=== PATIENT | male | born 1975 | race Caucasian/White ===

== ENCOUNTER 2024-04-23 14:08 | Emergency (ER) | payer SELFPAY ==
[2024-04-23] VITALS (7 sets, daily range): BP systolic 140–171; BP diastolic 88–105; PULSE 73–94; RESP 19–22; TEMP 36.6–36.9; O2SAT 93–95; BMI 32.5
--- NOTE | 2024-04-23 14:20 | EKG_ITS ---
[facility] Test Date: 2024-04-23 Pat Name: ARELY ANGELO Department: Room: - Gender: Male Associate: : 1975 Requested By: ED Temporary Provider Order Number: [id number] Reading MD: ED Temporary Provider Measurements Intervals [place] Rate: 88 P: 18 NH: 206 QRS: -45 QRSD: 104 T: 65 QT: 364 QTc: 441 Interpretive Statements SINUS RHYTHM PATTERN CONSISTENT WITH PULMONARY DISEASE LEFT ANTERIOR FASCICULAR BLOCK [QRS AXIS <= -45, QR IN I, RS IN II] No previous ECG available for comparison /store/S0/[id number].pdf
--- NOTE | 2024-04-23 14:53 | XR_ITS ---
Examination: PA lateral chest 2 views TECHNIQUE: Upright PA lateral chest 2 views Exam date and time: April 23, 2024 1528 hours INDICATIONS: Onset chest pain today. FINDINGS: Mild prominence left ventricle Suspicious for early pneumonia left upper lobe Atelectasis versus early pneumonia right base No pulmonary edema Intact osseous structures IMPRESSION: Suspicious for early left upper lobe pneumonia Atelectasis versus early pneumonia right base
--- NOTE | 2024-04-23 15:05 | PD.EDRME ---
Rapid Medical Screening Exam RME Arrival date/time: 04/23/24 14:08 48-year-old male presents emergency department complaints of epigastric pain that radiates into his chest. I have greeted and performed a focused initial assessment of this patient. Initial appropriate labs ordered at this time. A comprehensive ED assessment and evaluation of the patient and analysis of all test and completion of medical decision making process will be conducted by additional ED provider. Chief Complaint: Chest Pain Time Seen by Provider: 04/23/24 14:52 Vital signs: Vital Signs Temperature 98 F 04/23/24 15:07 Pulse Rate 94 04/23/24 15:07 Respiratory Rate 22 H 04/23/24 15:07 Blood Pressure 142/95 H 04/23/24 15:07 Pulse Oximetry (%) 95 04/23/24 15:07 Oxygen Delivery Method Room Air 04/23/24 15:07
--- NOTE | 2024-04-23 15:25 | XR_ITS ---
Examination: Abdomen sonogram, Limited Date and time of exam: April 23, 2024 1542 hours INDICATIONS: Epigastric pain radiating to the back beginning 3 days ago Technique: Real-time lizama scale transabdominal sonographic images of the upper abdomen obtained. Findings: Multiple gallstones Gallbladder wall 0.2 cm no edema Common bile duct 0.3 cm Pancreas obscured by bowel gas Liver 14.7 cm fatty liver lobular contour no liver lesions Normal hepatopedal portal venous flow Patent IVC IMPRESSION: Cholelithiasis, negative for cholecystitis Fatty liver, primary hepatocellular disease
[2024-04-23 15:37] LABS: Basophils # (Auto) 0.1 Thou/mm3 (0.0-0.2); Basophils % (Auto) 0 % (0-2.5); Eosinophils # (Auto) 0.1 Thou/mm3 (0.0-0.5); Eosinophils % (Auto) 0 % (0-10); Hematocrit 51.5 % (41.0-53.0); Hemoglobin 18.2 g/dL (13.5-16.0); Immature Granulocytes % (Auto) 1 % (0-0); Immature Granulocytes Auto 0.09 Thou/mm3 (0.00-0.00); Lymphocytes % (Auto) 5 % (10-50); Mean Corpuscular HGB Conc 35.3 g/dl (31.0-37.0); Mean Corpuscular Hemoglobin 29.8 pg (25.0-35.0); Mean Corpuscular Volume 84 fL (80-100); Monocytes # (Auto) 0.9 Thou/mm3 (0.0-0.8); Monocytes % (Auto) 5 % (0-12); Neutrophils # (Auto) 16.9 Thou/mm3 (1.8-7.7); Neutrophils % (Auto) 89 % (37-80); Nucleated Red Blood Cell % 0 /100 WBC (0); Platelet Count 236 Thou/mm3 (140-440); RDW Standard Deviation 41.2 fL (35.1-43.9)
[2024-04-23 15:51] LABS: Partial Thromboplastin Time 24.3 Seconds (22.0-36.0); Prothrombin Time 11.2 Seconds (9.0-12.2)
[2024-04-23 16:04] LABS: Alanine Aminotransferase 348 U/L (10-49); Albumin, Serum 5.1 gm/dL (3.5-5.0); Albumin/Globulin Ratio 1.6 (1.2-2.2); Alkaline Phosphatase 181 U/L (46-116); Anion Gap 6 (7-16); Aspartate Amino Transferase 218 U/L (0-34); B-Type Natriuretic Peptide < 20 pg/mL (0-100); BUN/Creatinine Ratio 13 Ratio (12-20); Bilirubin,Total 5.1 mg/dL (0.3-1.2); Blood Urea Nitrogen 14 mg/dL (9-23); Calcium 10.3 mg/dL (8.3-10.6); Calcium (Corrected) 10.3 mg/dL (8.5-10.1); Carbon Dioxide 24.5 mMol/L (20.0-31.0); Chloride 102 mMol/L (98-107); Creatinine (Component) 1.1 mg/dL (0.6-1.3); Estimated Creatinine Clearance 102.4 mL/min (>60); Globulin 3.1 gm/dL (2.3-3.5); Glucose 154 mg/dL (74-106); Lipase 3495 U/L (12-53); Magnesium 2.3 mg/dL (1.6-2.6); Osmolality,Calculated 268 (275-295); Potassium 4.7 mMol/L (3.4-5.1); Sodium 132 mMol/L (136-145); Total Protein 8.2 gm/dL (5.7-8.2); Troponin I < 0.020 ng/mL (0.0-0.045); eGFR > 60 See Note
--- NOTE | 2024-04-23 16:22 | XR_ITS ---
Examination: CT abdomen with intravenous contrast CT pelvis with intravenous contrast 2-D coronal reconstructions 2-D sagittal reconstructions Date and time of exam:April 23, 2024 1842 hrs. Comparison January 17, 2009 Indications: Abdominal pain radiating to the back with shortness of breath nausea vomiting beginning 3 days ago. CTDI: vol (mGy) 11.5 DLP: (mGycm) 802 Technique: Multiple axial sections of the abdomen and pelvis have been obtained. 64 slice high-resolution scanner used. 3 mm axial sections have been obtained, post intravenous injection 60 cc [id number] 2-D sagittal, coronal reconstructions obtained. Low dose protocols were performed. One or more of the following dose reduction techniques were used; automated exposure control, adjustment of the mA and/or KV according to patient size, use of iterative reconstruction technique. Findings: No focal liver lesions Cholelithiasis, gallbladder wall is thickened and edematous Common bile duct shows wall thickening and is distended with fluid density Gastric antrum shows mucosal thickening with pronounced edema involving the duodenum Pancreas exhibits mild edema Aorta normal size No hydronephrosis Absent appendix No bowel obstruction No bladder mass No prostatomegaly Moderate osteopenia Impression: Acute calculus cholecystitis Findings suspicious for ascending cholangitis, gastritis, active peptic disease duodenum, mild pancreatitis Consider MRCP follow-up
--- NOTE | 2024-04-23 17:15 | EDNOTE_ITS ---
ED SOB =RME/HPI General Chief Complaint: Chest Pain Stated Complaint: STERNAL CHEST PAIN RADIATING THROUGH BACK W/ SOB Time Seen by Provider: 04/23/24 14:52 Arrival date/time: 04/23/24 14:08 This is a 48-year-old male that comes in with complaints of chest pain and shortness of breath that started on 03/18/24. Patient states that pain is mostly to his epigastric area and radiates down to his back. Patient complains of nausea and trying to vomit but nothing comes out. Patient has a history of high blood pressure and takes lisinopril for this. Patient has a history of an appendectomy in the past. Patient denies alcohol or any drug use.. Patient denies fever but states stated he had chills. Limitations: other (Moderate distress) RME / HPI RME / HPI Narrative: 04/23/24 14:08 48-year-old male presents emergency department complaints of epigastric pain that radiates into his chest. I have greeted and performed a focused initial assessment of this patient. Initial appropriate labs ordered at this time. A comprehensive ED assessment and evaluation of the patient and analysis of all test and completion of medical decision making process will be conducted by additional ED provider. Related Data Previous Rx's ?Medication ?Instructions ?Recorded amlodipine 5 mg tablet 5 mg PO QDAY #30 tabs 04/30/24 lisinopril 40 mg tablet 40 mg PO QDAY 30 days #30 tabs 04/30/24 Allergies Allergy/AdvReac Type Severity Reaction Status Date / Time No Known Allergies Allergy Verified 04/23/24 14:09 Review of Systems Review of Systems Systems Reviewed: All systems reviewed, normal except as documented Past Medical History Past Medical History CARDIAC: Positive Hypertension (not on any medications x 1 month, lost his insurance); Negative Congestive Heart Failure RESPIRATORY: Negative Chronic Obstructive Pulmonary Disease (COPD) GENITOURINARY: Negative Renal Disease ENDOCRINE: Negative Diabetes Mellitus Type 1 or Diabetes Mellitus Type 2 Social History SMOKING STATUS: Never smoker Travel History EBOLA RISK: No Past Medical History Comments PMH COMMENT: Past medical history of hypertension, past surgical history of appendectomy No tobacco no alcohol no drugs Family history nonpertinent ED Exam General Limitations: Present other (Moderate distress) General appearance: Present alert Head Head exam: Present atraumatic Eye Eye exam: Present normal appearance, PERRL and EOMI ENT ENT exam: Present other (Mucous membranes dry) Neck Neck exam: Present normal inspection, full ROM and trachea midline Chest Chest inspection: Present normal inspection and symmetric chest wall rise Respiratory Respiratory exam: Present other (Diminished at bases) Cardiovascular Cardiovascular exam: Present regular rate, normal rhythm and normal heart sounds Abdominal Exam Abdominal exam: Present soft and other (Mild pain to palpation to epigastric area.) Extremities Exam Extremities exam: Present normal inspection and full ROM Back Exam Back exam: Present normal inspection and full ROM Neurological Exam Neurological exam: Present alert and oriented X3 Psychiatric Psychiatric exam: Present normal affect and normal mood Skin Skin exam: Present warm, dry and intact Course Quality Measures none Orders Category Date Time Status CT Screening NOW Care 04/23/24 16:22 Completed EKG (ED ONLY) *Do not use* NOW Care 04/23/24 14:20 Completed Transfer to another facility [Transfer/Discharge] Stat Discharge 04/23/24 21:[address] abdomen pelvis w con Stat Exams 04/23/24 16:22 Completed EKG (ED Only) Stat Exams 04/23/24 14:20 Draft US gall bladder Stat Exams 04/23/24 15:25 Completed XR chest 2V Stat Exams 04/23/24 14:53 Completed B-Type Natriuretic Peptide Stat Lab 04/23/24 15:24 Completed CBC Stat Lab 04/23/24 15:24 Completed Comprehensive Metabolic Panel Stat Lab 04/23/24 15:24 Completed Drug Screen,Urine Stat Lab 04/23/24 20:25 Completed Lipase Stat Lab 04/23/24 15:24 Completed Magnesium Stat Lab 04/23/24 15:24 Completed Partial Thromboplastin Time Stat Lab 04/23/24 15:24 Completed Prothrombin Time with INR Stat Lab 04/23/24 15:24 Completed Triglycerides Stat Lab 04/23/24 15:24 Completed Troponin I Stat Lab 04/23/24 15:24 Completed Urinalysis, C/S if Indicated Stat Lab 04/23/24 20:25 Completed Aspirin Med 04/23/24 15:25 Discontinued 325 mg PO X1 ONE HYDROmorphone INJ [Dilaudid Inj] Med 04/23/24 17:19 Discontinued 0.5 mg IVP X1 ONE HYDROmorphone INJ [Dilaudid Inj] Med 04/23/24 19:32 Discontinued 0.5 mg IVP X1 ONE HYDROmorphone INJ [Dilaudid Inj] Med 04/23/24 22:13 Discontinued 1 mg IVP X1 ONE Lidocaine 2% Viscous [Xylocaine 2% Viscous] Med 04/23/24 15:25 Discontinued 15 ml PO X1 ONE Ondansetron Inj [Zofran Inj] Med 04/23/24 17:19 Discontinued 4 mg IV X1 ONE Ondansetron Inj [Zofran Inj] Med 04/23/24 22:13 Discontinued 4 mg IV X1 ONE Ondansetron Odt [Zofran Odt] Med 04/23/24 14:53 Discontinued 4 mg PO X1 ONE Piper/Tazo Inj [Zosyn Inj] 3.375 gm Med 04/23/24 19:53 Discontinued Sodium Chloride 0.9% (P) [Ns 0.9% (P)] 50 ml IV X1 Sodium Chloride 0.9% 1000 ml [Ns] 1,000 ml Med 04/23/24 17:15 Discontinued IV 999 mls/hr Sodium Chloride 0.9% 1000 ml [Ns] 1,000 ml Med 04/23/24 17:15 Discontinued IV 999 mls/hr mg Hyd/Al Hyd/Diamond Susp [Maalox Susp] Med 04/23/24 15:25 Discontinued 30 ml PO X1 ONE Vital Signs Vital signs: Vital Signs Temperature 98 F 04/23/24 15:07 Pulse Rate 94 04/23/24 15:07 Respiratory Rate 22 H 04/23/24 15:07 Blood Pressure 142/95 H 04/23/24 15:07 Pulse Oximetry (%) 95 04/23/24 15:07 Oxygen Delivery Method Room Air 04/23/24 15:07 Procedures -ED EKG Interpretation #1: Date of EK04/23/24 Time of EK:11 Rate: 88 Interpretation: Interpreted by me (sinus rhythm with left anterior fasicular block ) EKG Impression: No ectopy, Normal QRS and Normal intervals Shortness of Breath / Dyspnea [facility] Narrative MDM Narrative:: This is a 48-year-old male that comes in with complaints of chest pain and shortness of breath that started on 03/18/24. Patient states that pain is mostly to his epigastric area and radiates down to his back. Patient complains of nausea and trying to vomit but nothing comes out. Patient has a history of high blood pressure and takes lisinopril for this. Patient has a history of an appendectomy in the past. Patient denies alcohol or any drug use.. Patient denies fever but states stated he had chills. Labs significant for a white count of 19.0, hemoglobin and hematocrit of 18.0 and 51.5, neutrophil count elevated 89, metabolic panel shows a sodium of 132 glucose 154, total bilirubin of 5.1 AST 218 ALT of 348 alk phos of 181, troponin 0.020, BNP is less than 20, lipase 3495, triglyceride level 148, urine showed some RBCs and ketones. Patient treated with Dilaudid for pain. Patient given Zofran for nausea. Chest x-ray was questionable for upper left lobe pneumonia. Patient was given dose of Zosyn 3.75. Patient does not have a fever upon arrival but does report chills, questionable for cholangitis versus choledochocholelithiasis. Unable to get MRCP here in the emergency room. Patient will likely need a ERCP done. CT scan of abdomen and pelvis shows common bile duct wall thickening and distended with fluid density. Attempting to transfer patient to higher level of care where ERCP is available. Patient given 2 L of IV fluids. I spoke to [facility], ue accepted, GI chest x ray: FINDINGS: Mild prominence left ventricle Suspicious for early pneumonia left upper lobe Atelectasis versus early pneumonia right base No pulmonary edema Intact osseous structures IMPRESSION: Suspicious for early left upper lobe pneumonia Atelectasis versus early pneumonia right base ct abdomen and pelvis Findings: No focal liver lesions Cholelithiasis, gallbladder wall is thickened and edematous Common bile duct shows wall thickening and is distended with fluid density Gastric antrum shows mucosal thickening with pronounced edema involving the duodenum Pancreas exhibits mild edema Aorta normal size No hydronephrosis Absent appendix No bowel obstruction No bladder mass No prostatomegaly Moderate osteopenia Impression: Acute calculus cholecystitis Findings suspicious for ascending cholangitis, gastritis, active peptic disease duodenum, mild pancreatitis Consider MRCP follow-up ue acceptefd, GI Patient data External records reviewed:: [facility] previous records Clinical information provided by:: patient Social determinants that could affect healthcare access:: none Patient has the following chronic illnesses:: see hpi How is presenting disease/condition affected by chronic disease/condition?: exacerbated by Evaluation data The following diagnostics were reviewed and interpreted by me:: lab results, radiology exam(s) and EKG tracing(s) Lab and/or radiology exams considered but not ordered:: ercp Interpretation Summary: see mdm Medications / Prescriptions Medications or Prescriptions considered but not ordered:: none Medication administrations:: Medication Administration History Discontinued Medications Al Hydrox/Mg Hydrox/Simethicone (Mg Hyd/Al Hyd/Diamond (Maalox Reg) Susp 30 Ml Udc) 30 ml PO X1 ONE Stop: 04/23/24 15:26 Last Admin: 04/23/24 18:09 Dose: Not Given Documented By: [facility] Non-Admin Reason: Cancelled by Provider Aspirin (Aspirin 325 Mg Tablet) 325 mg PO X1 ONE Stop: 04/23/24 15:26 Last Admin: 04/23/24 18:08 Dose: Not Given Documented By: [facility] Non-Admin Reason: Cancelled by Provider Hydromorphone HCl (Hydromorphone Inj 2 Mg/Ml Vial) 0.5 mg IVP X1 ONE Stop: 04/23/24 17:20 Last Admin: 04/23/24 18:20 Dose: 0.5 mg Documented By: Noemi Hydromorphone HCl (Hydromorphone Inj 2 Mg/Ml Vial) 0.5 mg IVP X1 ONE Stop: 04/23/24 19:33 Last Admin: 04/23/24 19:43 Dose: 0.5 mg Documented By: CALVIN Hydromorphone HCl (Hydromorphone Inj 2 Mg/Ml Vial) 1 mg IVP X1 ONE Stop: 04/23/24 22:14 Last Admin: 04/23/24 22:19 Dose: 1 mg Documented By: CVL Sodium Chloride (Ns) 1,000 mls @ 999 mls/hr IV .Q1H1M ONE Stop: 04/23/24 18:15 Last Infusion: 04/23/24 20:07 Dose: Infused Documented By: Admin: 04/23/24 18:17 Dose: 999 mls/hr Documented By: [facility] Sodium Chloride (Ns) 1,000 mls @ 999 mls/hr IV .Q1H1M ONE Stop: 04/23/24 18:15 Last Infusion: 04/23/24 20:08 Dose: Infused Documented By: Admin: 04/23/24 18:18 Dose: 999 mls/hr Documented By: [facility] Piperacillin Sod/Tazobactam (Sod 3.375 gm/ Sodium Chloride) 50 mls @ 100 mls/hr IV X1 ONE Stop: 04/23/24 20:22 Last Infusion: 04/23/24 20:28 Dose: Infused Documented By: Admin: 04/23/24 19:58 Dose: 100 mls/hr Documented By: MARIE Lidocaine HCl (Lidocaine Viscous 2% 15 Ml Udc) 15 ml PO X1 ONE Stop: 04/23/24 15:26 Last Admin: 04/23/24 18:09 Dose: Not Given Documented By: [facility] Non-Admin Reason: Cancelled by Provider Ondansetron HCl (Ondansetron Odt 4 Mg Tabrap) 4 mg PO X1 ONE Stop: 04/23/24 14:54 Last Admin: 04/23/24 18:08 Dose: Not Given Documented By: [facility] Non-Admin Reason: Cancelled by Provider Ondansetron HCl (Ondansetron Inj 2 Mg/Ml Inj 2 Ml) 4 mg IV X1 ONE; Protocol Stop: 04/23/24 17:20 Last Admin: 04/23/24 18:19 Dose: 4 mg Documented By: SEDRICK Ondansetron HCl (Ondansetron Inj 2 Mg/Ml Inj 2 Ml) 4 mg IV X1 ONE; Protocol Stop: 04/23/24 22:14 see note Consultations Consultation(s) initiated? (list below): Yes Consultation #1 (Physician, Specialty, Details): yes see hpi Diagnosis Shortness of Breath Differential Diagnosis: other (cholecystitis, cholangitis. choledochocholelithiasis) Most likely diagnosis given after review of the tests above:: gallstones, elevated liver enzymes, fever Admission Indicated Admission indicated?: not indicated Admission Request Was there a request for admission?: No Disposition Plan Disposition Plan: Transfer Discharge Plan Plan Patient Disposition: [facility] Facility Pt Being Transferred to: [facility] Service Needed for Transfer: Gastroenterology Prescriptions/Referrals Prescriptions/Med Rec: No Action lisinopril 40 mg tablet 40 mg PO QDAY 30 Days Qty: 30 0RF amlodipine 5 mg tablet 5 mg PO QDAY Qty: 30 0RF Referrals: Jose Henderson MD [Primary Care Provider] - In 1 week Problem List Clinical Impression: Cholecystitis, Elevated liver function tests, Pancreatitis Patient/Caregiver Discharge Instructions Print Language: Occitan Stand Alone Forms: Sirena Award Info., Patient Portal Info Letter
--- NOTE | 2024-04-23 18:09 | PC.NURSE ---
PER PATTI N/P DO NOT GIVEN ZOFRAN ODT, ASA, LIDOCAINE OR MAALOX
[2024-04-23] MEDS: SODIUM CHLORIDE 0.9% 1000 ML 1,000 ML 999 ML IV ×2 (18:17→18:18)
[2024-04-23] MEDS: ONDANSETRON INJ 2 MG/ML INJ 2 ML 4 MG IV (18:19)
[2024-04-23] MEDS: HYDROmorphone INJ 2 MG/ML VIAL 0.5 MG IVP ×2 (18:20→19:43)
--- NOTE | 2024-04-23 18:20 | PC.NURSE ---
This chest pain assessment pertains to pt's chest pain 3 days ago; pt denying chest pain at this time. Pt reports that the chest pain only lasted for 2 hours when it began 3 days ago.
--- NOTE | 2024-04-23 18:20 | PC.NURSE ---
Addendum entered by Melody Johnson RN 04/23/24 18:54: @1820- Pt also initially c/o chest pain sharp that started 3 days ago as well; pt reports it stopped hurting after 2 hours on that day. Pt denying chest pain at this time. Original Note: Pt coming in from [facility] with c/o epigastric pain x3 days with nausea but denying vomiting at this time. Pt reports, this is the first time it has happened to me. Pt states, I stopped eating 2 days ago; but the last time I drank water was yesterday. Pt's only hx is hypertension, per pt.
[2024-04-23] MEDS: PIPER/TAZO INJ 3.375 GM in SODIUM CHLORIDE 0.9% (P) 50 ML IV (19:58)
[2024-04-23 20:18] LABS: Triglycerides 148 mg/dL (30-150)
[2024-04-23 20:32] LABS: Collection Type, Urine Voided; Squamous Epithelial Cell,Urine 0 /hpf (0-5)
[2024-04-23 20:55] LABS: Bilirubin,Urine 1+ (Negative); Blood,Urine Negative (Negative); Clarity,Urine Clear (Clear/Hazy); Color,Urine Yellow (Lt Yel-Yel); Culture Indicated,Urine Not Indicated; Glucose, Urine Negative (Negative); Ketones,Urine 2+ (Negative); Leukocyte Esterase,Urine Negative (Negative); Nitrite,Urine Negative (Negative); PH,Urine 5.5 (5.0-7.0); Protein,Urine Trace (Neg - Trace); RBC,Urine 4 /hpf (0-3); Specific Gravity,Urine 1.038 (1.001-1.035); WBC,Urine 3 /hpf (0-5)
--- NOTE | 2024-04-23 21:29 | PC.NURSE ---
[address] [facility] CONTACTED INFO SENT. [address] [facility] CONTACTED SPEAKING WITH PATTI GONSALEZ. [address] [facility] ACCEPTS PT ED TO ED BY DR BARRIENTOS.
--- NOTE | 2024-04-23 21:52 | PC.NURSE ---
PATIENT ACCEPTED TO [facility] , ER TO ER, REPORT #[id number], SPOKE TO SHAYAN
[2024-04-23 22:07] LABS: Amphetamine/Methamp Scrn,U Negative (Negative); Barbiturate Screen,Urine Negative (Negative); Benzodiazepines Screen,Urine Negative (Negative); Benzoylecgonine Screen, Ur Negative (Negative); Fentanyl Screen,Urine Negative (Negative); Opiate Screen,Urine Positive (Negative); THC Screen,Urine Negative (Negative)
[2024-04-23] MEDS: HYDROmorphone INJ 2 MG/ML VIAL 1 MG IVP (22:19)
--- NOTE | 2024-04-23 22:24 | PC.NURSE ---
REPORT GIVEN TO [facility] ER.
== END 2024-04-23 22:25 | disposition short-term general hospital (02) ==
PROVIDERS: Nurse Practitioner Family; Nurse Practitioner Primary Care; Emergency Provider Emergency Medicine; PCP Family Medicine
DX: K80.00 Calculus of gallbladder with acute cholecystitis without obstruction (principal); K85.90 Acute pancreatitis without necrosis or infection, unspecified; R79.89 Other specified abnormal findings of blood chemistry; I44.4 Left anterior fascicular block; R07.89 Other chest pain; I10 Essential (primary) hypertension; Z75.1 Person awaiting admission to adequate facility elsewhere
CPT/HCPCS: 36415; 71046; 74177; 76705; 80053; 80307; 81001; 83690; 83735; 83880; 84478; 84484; 85025; 85610; 85730; 93005; 96361; 96365; 96375; 96376; 99285; A4649; J2405; J2543; J3490; J7030; J7050; Q9967

== ENCOUNTER 2024-04-29 05:40 | Inpatient (IN) | payer SELFPAY ==
[2024-04-29] VITALS (7 sets, daily range): BP systolic 143–167; BP diastolic 81–105; PULSE 75–88; RESP 16–97; TEMP 36.1–36.8; O2SAT 92–96; BMI 34.9
--- NOTE | 2024-04-29 06:16 | PC.NURSE ---
MD German Taylor made aware that pt is a transfer from [facility] and arrived to the floor at this time.
[2024-04-29 09:59] LABS: Basophils # (Auto) 0.1 Thou/mm3 (0.0-0.2); Basophils % (Auto) 1 % (0-2.5); Eosinophils # (Auto) 0.5 Thou/mm3 (0.0-0.5); Eosinophils % (Auto) 4 % (0-10); Hematocrit 39.9 % (41.0-53.0); Hemoglobin 14.2 g/dL (13.5-16.0); Immature Granulocytes % (Auto) 1 % (0-0); Immature Granulocytes Auto 0.11 Thou/mm3 (0.00-0.00); Lymphocytes # (Auto) 1.3 Thou/mm3 (1.0-4.8); Lymphocytes % (Auto) 9 % (10-50); Mean Corpuscular HGB Conc 35.6 g/dl (31.0-37.0); Mean Corpuscular Hemoglobin 29.5 pg (25.0-35.0); Mean Corpuscular Volume 83 fL (80-100); Monocytes # (Auto) 1.1 Thou/mm3 (0.0-0.8); Monocytes % (Auto) 7 % (0-12); Neutrophils # (Auto) 11.5 Thou/mm3 (1.8-7.7); Neutrophils % (Auto) 79 % (37-80); Nucleated Red Blood Cell % 0 /100 WBC (0); Platelet Count 202 Thou/mm3 (140-440); RDW Standard Deviation 39.4 fL (35.1-43.9); Red Blood Count 4.81 Miln/mm3 (4.50-5.90); White Blood Count 14.6 Thou/mm3 (3.8-10.6)
[2024-04-29 10:18] LABS: Alanine Aminotransferase 52 U/L (10-49); Albumin, Serum 4.3 gm/dL (3.5-5.0); Albumin/Globulin Ratio 1.5 (1.2-2.2); Alkaline Phosphatase 97 U/L (46-116); Anion Gap 6 (7-16); Aspartate Amino Transferase 28 U/L (0-34); BUN/Creatinine Ratio 11 Ratio (12-20); Bilirubin,Total 0.7 mg/dL (0.3-1.2); Blood Urea Nitrogen 9 mg/dL (9-23); Calcium 9.3 mg/dL (8.3-10.6); Calcium (Corrected) 9.3 mg/dL (8.5-10.1); Chloride 95 mMol/L (98-107); Creatinine (Component) 0.8 mg/dL (0.6-1.3); Estimated Creatinine Clearance 145.9 mL/min (>60); Globulin 2.9 gm/dL (2.3-3.5); Glucose 108 mg/dL (74-106); Lipase 48 U/L (12-53); Osmolality,Calculated 262 (275-295); Potassium 3.3 mMol/L (3.4-5.1); Sodium 131 mMol/L (136-145); Total Protein 7.2 gm/dL (5.7-8.2); eGFR > 60 See Note
[2024-04-29] MEDS: Lisinopril 20 MG TABLET 40 MG PO (12:19)
[2024-04-29] MEDS: POTASSIUM CHLORIDE 20 mEq TABCR 40 MEQ PO (12:21)
--- NOTE | 2024-04-29 12:35 | PC.SS ---
Patient is alert/oriented. Patient is a return back from [facility] as a transfer back. Patient was admitted for pancreatitis. Patient does not recall what was done at [facility]. Patient states he resides with daughter, Sherin. He wants to return home. Patient states he is independent with ADL'.s Patient was not using any DME. His PCP: [facility] off [address]. Patient last appt. was 6 months ago. Patient pharmacy: [facility]. Patient states his daughter, Sherin, is the alt medical decision maker.
[2024-04-29] MEDS: LACTULOSE SYRUP 20 GM/30 ML UDC 10 GM PO (12:45)
--- NOTE | 2024-04-29 12:46 | PC.NURSE ---
Dr. German in to see pt
--- NOTE | 2024-04-29 14:03 | ESCONSULT_ITS ---
HPI Consult details Consult date: 04/29/24 Reason for consultation narrative: Cholelithiasis History of present illness: 48-year-old male with history of hypertension has had 1 week history of epigastric and right upper quadrant pain. He was seen in the emergency department about a week ago with worsening epigastric and right upper quadrant pain radiating to his back with multiple episodes of nausea and vomiting. He was noted to have elevation of liver and pancreatic enzymes. Ultrasound revealed multiple gallstones. CT scan revealed gallbladder wall thickening with edema with pancreatitis. Patient was transferred to [facility] where he underwent MRCP and managed conservatively. He is transferred back to our hospital where his liver and pancreatic enzymes are normal and his symptoms are improving. Patient is tolerating clear liquids Past Medical History Surgical History OTHER SURGICAL HX: Appendectomy Social History SMOKING STATUS: Never smoker SUBSTANCE USE: does not use ALCOHOL: Never Meds Home Medications and Allergies Home Medications ?Medication ?Instructions ?Recorded ?Confirmed ?Type lisinopril 20 mg tablet 40 mg PO QDAY 04/23/24 04/29/24 History Allergies Allergy/AdvReac Type Severity Reaction Status Date / Time No Known Allergies Allergy Verified 04/23/24 14:09 Exam Vital Signs Temp Pulse Resp BP Pulse Ox O2 Del Method 98.2 F 88 18 149/105 H 94 L Room Air 04/29/24 12:00 04/29/24 12:19 04/29/24 12:19 04/29/24 12:19 04/29/24 12:00 04/29/24 12:00 Constitutional Constitutional: no acute distress Routine Abdominal Exam Abdominal: Present soft, normoactive bowel sounds and tenderness (Minimal tenderness to palpation epigastric, no rebound tenderness or peritonitis at this time); Absent distended Assessment & Plan Additional Assessment Additional comments: Patient most likely had gallstone pancreatitis that resolved. Plan He wishes to follow-up as an outpatient for elective cholecystectomy. Patient will need to follow-up at [facility] to see his PMD and be referred to me for elective cholecystectomy.
--- NOTE | 2024-04-29 16:32 | ESHP_ITS ---
<Statement entered by Sonja Mayer MD - 04/30/24 20:06> Patient is a 48-year-old male with past medical history significant for hypertension who presented to the ED initially on 04/23/2024 with repeated episodes of epigastric pain radiating to the chest. Due to patient's worsening pain and labs, patient was transferred for further workup including MRCP and possible ERCP to [facility] MRCP in [facility] showed cholelithiasis but no choledocholithiasis. Patient was transferred back to [facility] on 04/29/2024 further management of pancreatitis secondary to gallstones. Dr German, GI was consulted for possible cholecystectomy. Patient will continue to be on pain regimen and replete electrolytes as needed. I discussed with and supervised the business management intern physician who took care of this patient. I personally saw and examined the patient and discussed the assessment and plan with the entire medicine team, including my attending , I agree with most of the assessment and plan as documented below Sonja Mayer M.D. PGY-2 Documentation for date of: 04/29/24 HPI History of Present Illness Chief complaint: abdominal pain History of present illness: Kenneth Walker is 48 yr male with PMH of HTN who initially presented to [facility] on04/23/2024 after having repeated episodes of epigastric pain that was radiating to chest. Patient stated that stabbing pain was sudden onset associated with diaphoresis, nausea, and pain 04/18. The pain was intermittent, however a few days before admission, pain progressed to being continuous and worsened with multiple episodes of vomiting. He endorsed lightheaded and dizziness. Upon arrival in the ED at [facility], CT A/P showed suspicious ascending cholangitis and acute calculus cholecystitis. Labs were significant for leukocytosis WBC 19, hemoglobin 18, creatinine 1.1, calcium 10.3, bilirubin 5.1, AST 218, ALT 348, alk phos 181, and lipase 3495. There was high suspicion that patient may need the ERCP. Therefore, he was transferred to [facility] for workup. During time at [facility], patient underwent MRCP which showed cholelithiasis and suspicion of gallstone induced acute pancreatitis. He was started n.p.o., given IV fluids, and pain management. On 04/29/2024 patient was transferred back to ED at [facility] where he was admitted for further assessment. Patient states that pain has improved but still 5/10, in epigastric region, radiating to back. Denies vomiting and has decreased appetite. Labs from today significant for downtrending WBC 14.6, hemoglobin 14.2, hypokalemia 3.3, down trended AST 28, ALT 52, lipase 48. Dr German was consulted who stated that patient is stable enough to have cholecystectomy done outpatient. PMH: as noted above PSH: appendectomy FamHx: Noncontributory Social: Denies smoking or drinking. Review of Systems Review of Systems Systems Reviewed: All systems reviewed, normal except as documented Exam Vital Signs Temp Pulse Resp BP Pulse Ox O2 Del Method 97.3 F 75 18 147/101 H 94 L Room Air 04/29/24 16:00 04/29/24 16:00 04/29/24 16:00 04/29/24 16:00 04/29/24 16:00 04/29/24 16:00 Narrative Exam General: Alert and oriented x3. No acute distress, cooperative HEENT: Atraumatic, normocephalic. No JVD noted. Mucosa moist. Cardiovascular: Normal S1 and S2. Regular rate and rhythm. No pitting edema Respiratory: Lungs are clear to auscultation bilaterally. No wheezing or crackles heard. Abdomen: distended, epigastric pain to deep palpation, no gaurding/rigidity, hypoactive bowel sounds Skin: Warm to touch, dry, no rashes noted Musculoskeletal: No gross injuries. Able to move all 4 extremities. Neuro: Alert and oriented x3. No focal neuro deficits. Psych: Normal affect and mood Results: Labs 04/30/24 04:52 04/30/24 04:52 Labs: Short CBC 04/29/24 Range/Units 09:35 WBC 14.6 H (3.8-10.6) Thou/mm3 Hgb 14.2 D (13.5-16.0) g/dL Hct 39.9 L (41.0-53.0) % Plt Count 202 D (140-440) Thou/mm3 BMP 04/29/24 09:35 Sodium 131 L Potassium 3.3 L Chloride 95 L Carbon Dioxide 30.0 BUN 9 Creatinine 0.8 Glucose 108 H Calcium 9.3 Liver Function 04/29/24 Range/Units 09:35 Total Bilirubin 0.7 (0.3-1.2) mg/dL AST 28 (0-34) U/L ALT 52 H (10-49) U/L Alkaline Phosphatase 97 (46-116) U/L Albumin 4.3 (3.5-5.0) gm/dL Quality Measures Quality Measures VTE prophylaxis Medications Home Medications and Allergies Home Medications ?Medication ?Instructions ?Recorded ?Confirmed ?Type lisinopril 20 mg tablet 40 mg PO QDAY 04/23/24 04/29/24 History Allergies Allergy/AdvReac Type Severity Reaction Status Date / Time No Known Allergies Allergy Verified 04/23/24 14:09 Visit Medications Acetaminophen (Acetaminophen Supp 650 Mg Supp) 650 mg ID Q6HR PRN PRN Reason: Fever > 100.3 or pain Stop: 05/29/24 11:38 Heparin Sodium (Porcine) (Heparin Sod Inj 5000 Unit/Ml Vial) 5,000 unit SC Q12HR SUGEY Stop: 05/13/24 20:59 Lisinopril (Lisinopril 20 Mg Tablet) 40 mg PO QDAY [facility] Stop: 05/29/24 11:44 Last Admin: 04/29/24 12:19 Dose: 40 mg Ondansetron HCl (Ondansetron Inj 2 Mg/Ml Inj 2 Ml) 4 mg IV Q6H PRN; Protocol PRN Reason: NAUSEA OR VOMITING Stop: 05/29/24 11:38 Oxycodone/Acetaminophen (Oxycodone/Apap 5/325 Tablet) 1 tab PO Q6HR PRN PRN Reason: PAIN Stop: 05/04/24 06:05 Discontinued Medications Lactulose (Lactulose Syrup 20 Gm/30 Ml Udc) 10 gm PO X1 ONE; Protocol Stop: 04/29/24 12:32 Last Admin: 04/29/24 12:45 Dose: 10 gm Potassium Chloride (Potassium Chloride 20 Meq Tabcr) 40 meq PO X1 ONE Stop: 04/29/24 11:46 Last Admin: 04/29/24 12:21 Dose: 40 meq Assessment & Plan Plan Kenneth Walker is 48 yr male with PMH of HTN who initially presented to [facility] on04/23/2024 after having repeated episodes of epigastric pain that was radiating to chest. Patient stated that stabbing pain was sudden onset associated with diaphoresis, nausea, and pain 04/18. The pain was intermittent, however a few days before admission, pain progressed to being continuous and worsened with multiple episodes of vomiting. There was high suspicion that patient may need the ERCP. Therefore, he was transferred to [facility] for workup. MRCP which showed cholelithiasis and suspicion of gallstone induced acute pancreatitis. On 04/29/2024 patient was transferred back to ED at [facility] where he was admitted for further assessment. Dr German was consulted who stated that patient is stable enough to have cholecystectomy done outpatient. #Gallstone induced acute pancreatitis Cholelithiasis progressing to cholecystitis with movement of stone down into CBD causing gallstone induced pancreatitis. CTAP confirms finding of multiple gallstones. It was likely that gallstone was causing cholecystitis and eventually passed into CBD where blockage affected pancreas causing acute inflammation. Recommended that patient has cholecystectomy. Stable enough to have procedure done outpatient. Lipase down trended now normalized to 48, AST 28, ALT 52. ? Dr German was consulted and recommended to follow-up outpatient for cholecystectomy ? to [place] 5 every 6 HR as needed acetaminophen 650 mg p.o. ? Zofran 4 mg IV every 6 hours as needed ?Currently on low-fat diet #History HTN Continue home medication lisinopril 40 mg p.o. daily #Hypokalemia ?Monitor and replete as necessary Health maintenance: Dispo: d/c tomorrow pending WBC trend DVT prophylaxis: Subcu heparin CODE STATUS: Full code Diet: Low-fat The patient's management plan was discussed with my attending physician Dr. Kellogg and seniors Dr. Rodriguez/Dr. Mayer. Winter Crews, PGY-1 Attending Provider Attestation/Addendum I have examined the patient, reviewed labs and imaging findings, discussed the case with the resident(s), and reviewed entered orders. I agree with the plan of care as outlined in this note, with these additional summaries/recommendations: Patient is a 48-year-old male who was transferred back to [facility] from [facility] for gallstone induced pancreatitis. Patient is now tolerating clear liquid diet and we will advance to low-fat diet. Continue pain management. General surgery was consulted and recommends outpatient cholecystectomy. Mild hypokalemia and replacement given. Continue lisinopril for primary hypertension. Dr. Kellogg
[2024-04-29] MEDS: oxyCODONE/APAP 5/325 TABLET 1 TAB PO (20:30)
[2024-04-30 01:35] VITALS: PULSE 79; RESP 18; RESP 95
[2024-04-30 04:00] VITALS: BP 150/103; PULSE 82; RESP 17; TEMP 36.2; O2SAT 92
[2024-04-30 06:14] LABS: Basophils # (Auto) 0.1 Thou/mm3 (0.0-0.2); Basophils % (Auto) 1 % (0-2.5); Eosinophils # (Auto) 0.5 Thou/mm3 (0.0-0.5); Eosinophils % (Auto) 4 % (0-10); Hematocrit 39.7 % (41.0-53.0); Hemoglobin 14.2 g/dL (13.5-16.0); Immature Granulocytes % (Auto) 1 % (0-0); Immature Granulocytes Auto 0.17 Thou/mm3 (0.00-0.00); Lymphocytes # (Auto) 1.4 Thou/mm3 (1.0-4.8); Lymphocytes % (Auto) 10 % (10-50); Mean Corpuscular HGB Conc 35.8 g/dl (31.0-37.0); Mean Corpuscular Volume 84 fL (80-100); Monocytes # (Auto) 1.2 Thou/mm3 (0.0-0.8); Monocytes % (Auto) 9 % (0-12); Neutrophils # (Auto) 10.4 Thou/mm3 (1.8-7.7); Neutrophils % (Auto) 76 % (37-80); Nucleated Red Blood Cell % 0 /100 WBC (0); Platelet Count 260 Thou/mm3 (140-440); RDW Standard Deviation 39.8 fL (35.1-43.9); Red Blood Count 4.73 Miln/mm3 (4.50-5.90); White Blood Count 13.8 Thou/mm3 (3.8-10.6)
[2024-04-30 06:20] LABS: INR 1.2 (0.9-1.3); Partial Thromboplastin Time 30.9 Seconds (22.0-36.0); Prothrombin Time 12.8 Seconds (9.0-12.2)
[2024-04-30 06:39] LABS: Alanine Aminotransferase 48 U/L (10-49); Albumin/Globulin Ratio 1.5 (1.2-2.2); Alkaline Phosphatase 94 U/L (46-116); Anion Gap 7 (7-16); Aspartate Amino Transferase 28 U/L (0-34); BUN/Creatinine Ratio 15 Ratio (12-20); Bilirubin,Total 0.6 mg/dL (0.3-1.2); Blood Urea Nitrogen 12 mg/dL (9-23); Carbon Dioxide 28.5 mMol/L (20.0-31.0); Chloride 100 mMol/L (98-107); Creatinine (Component) 0.8 mg/dL (0.6-1.3); Estimated Creatinine Clearance 145.9 mL/min (>60); Globulin 2.7 gm/dL (2.3-3.5); Glucose 117 mg/dL (74-106); Magnesium 2.2 mg/dL (1.6-2.6); Osmolality,Calculated 270 (275-295); Phosphorous 2.5 mg/dL (2.4-5.1); Potassium 3.3 mMol/L (3.4-5.1); Sodium 135 mMol/L (136-145); Total Protein 6.7 gm/dL (5.7-8.2); eGFR > 60 See Note
[2024-04-30 07:43] VITALS: PULSE 72; RESP 18; RESP 94
[2024-04-30 08:00] VITALS: BP 158/107; PULSE 72; RESP 18; TEMP 36.6; O2SAT 92
[2024-04-30 09:25] VITALS: BP 158/107; PULSE 72
[2024-04-30] MEDS: Lisinopril 20 MG TABLET 40 MG PO (09:25)
[2024-04-30] MEDS: POTASSIUM CHLORIDE 20 mEq TABCR 40 MEQ PO (09:25)
[2024-04-30] MEDS: POTASSIUM CHLORIDE 20 mEq TABCR PO (11:28)
[2024-04-30 12:00] VITALS: BP 155/109; PULSE 70; RESP 18; TEMP 36.6; O2SAT 95
--- NOTE | 2024-04-30 12:44 | PC.SS ---
Follow up note: Patient is a true self pay. SS spoke to financial counselor who states patient is not eligible for [employer] as he already applied prior. He applied for new [employer] but needs to provide proof of income documentation. Patient is pending [employer] but needs this submitted. Possible d/c home today.
--- NOTE | 2024-04-30 18:34 | PD.RESDS ---
Planned Discharge Date 04/30/24 DS: Providers Provider Date of admission: 04/29/24 05:40 Primary care physician: Physician No Primary/Family Admitting Provider: Berhane Morgan MD Attending Provider on Admission: Jeff Kellogg MD Consults: 04/29/24 11:42 Consult to General Surgery Routine Comment: possible cholecystectomy Consulting Provider: Quang German Attending Provider on DC: Winter Crews MD Discharging Provider: Jeff Kellogg MD DS: Diagnosis Problem List Completed Was Problem List Reviewed/Reconciled?: Yes Hospital Course Hospital Course Hospital course: Reason for hospitalization: gallstone induced pancreatitis Kenneth Walker is 48 yr male with PMH of HTN who initially presented to [facility] on04/23/2024 after having repeated episodes of epigastric pain that was radiating to back. Patient stated that stabbing pain was sudden onset associated with diaphoresis, nausea, and pain 04/18. Upon arrival in the ED at [facility], CT A/P showed suspicious ascending cholangitis and acute calculus cholecystitis. Labs were significant for leukocytosis WBC 19, hemoglobin 18, creatinine 1.1, calcium 10.3, bilirubin 5.1, AST 218, ALT 348, alk phos 181, and lipase 3495. There was high suspicion that patient may need ERCP. Therefore, he was transferred to [facility] for workup. During time at [facility], patient underwent MRCP which showed cholelithiasis and suspicion of gallstone induced acute pancreatitis. He was started n.p.o., given IV fluids, and pain management. On 04/29/2024 patient was transferred back to ED at [facility] where he was admitted for further assessment. Pain had improved but continued to have dcreased appetite. General surgery Dr. German was consulted for cholecystectomy. Repeat labs revealed downtrending WBC 14, hemoglobin 14, hypokalemia 3.3, down trended AST/ALT/lipase. Potassium was repleted and next day he was able to tolerate low-fat diet. As patient was stable and labs were improving, Dr German recommended for patient to have cholecystectomy outpatient. Patient is now in stable condition and ready for discharge. Recommendations were given as below. Discharge Recommendations: Take medications as prescribed. F/U with PCP in 1-2 weeks and obtain referral for general surgery- Dr. German for elective cholecystectomy. Repeat CBC in one week to monitor for resolution of leukocytosis. Return to ED if symptoms recur or worsen. Hospital Diagnoses: #Gallstone induced acute pancreatitis #Cholelithiasis #History HTN #Hypokalemia-resolved The patient's management plan was discussed with my attending physician Dr. Kellogg and senior Dr. Rodriguez. Winter Crews MD, PGY-1 Time Spent with Patient Time attestation: Total time spent providing and/or coordinating discharge services: Time spent: Greater than 30 minutes Exam Vital Signs Temp Pulse Resp BP Pulse Ox O2 Del Method 97.9 F 70 18 155/109 H 95 Room Air 04/30/24 12:00 04/30/24 12:00 04/30/24 12:00 04/30/24 12:00 04/30/24 12:00 04/30/24 12:00 Narrative Exam General: Alert and oriented x3. No acute distress, cooperative HEENT: Atraumatic, normocephalic. No JVD noted. Mucosa moist. Cardiovascular: Normal S1 and S2. Regular rate and rhythm. No pitting edema Respiratory: Lungs are clear to auscultation bilaterally. No wheezing or crackles heard. Abdomen: distended, epigastric pain to deep palpation, no gaurding/rigidity, hypoactive bowel sounds Skin: Warm to touch, dry, no rashes noted Musculoskeletal: No gross injuries. Able to move all 4 extremities. Neuro: Alert and oriented x3. No focal neuro deficits. Psych: Normal affect and mood Discharge Plan Plan Patient Disposition: HOME (Self Care) Disposition Comment: D/C after lunch if he tolerates it. Care Plan Goals: Take medications as prescribed. F/U with PCP in 1-2 weeks and obtain referral for general surgery- Dr. German for elective cholecystectomy. Repeat CBC in one week to monitor for resolution of leukocytosis. Return to ED if symptoms recur or worsen. Prescriptions/Referrals Prescriptions/Med Rec: New lisinopril 40 mg tablet 40 mg PO QDAY 30 Days Qty: 30 0RF amlodipine 5 mg tablet 5 mg PO QDAY Qty: 30 0RF Discontinued lisinopril 20 mg tablet 40 mg PO QDAY Referrals: Quang German MD [Physician] - No Primary/Family,Physician [Primary Care Provider] - Patient/Caregiver Discharge Instructions Education Materials: Understanding Pancreatitis, ED Cholecystitis, Confirmed Print Language: Indonesian Activity Restrictions/Additional Instructions: Take medications as prescribed. Follow up with Primary Care Provider in 1-2 weeks and obtain referral for general surgery- Dr. German for elective cholecystectomy. Repeat CBC in one week to monitor for resolution of leukocytosis. Return to ED if symptoms recur or worsen. Stand Alone Forms: Sirena Award Info., Patient Portal Info Letter Discharge Order Discharge Orders: Discharge (Routine); Ordered 04/30/24 Ordered By: Geneva Rodriguez Quality Discharge Quality Measures VTE prophylaxis MD Attestestation MD Attestation I have examined the patient, reviewed labs and imaging findings, discussed the case with the resident(s), and reviewed entered orders. I agree with the plan of care as outlined in this note. Dr. Kellogg
== END 2024-04-30 13:57 | disposition home or self-care (01) | DRG 439 ==
PROVIDERS: Admitting Provider Student in an Organized Health Care Education/Training Program; Visit Provider Student in an Organized Health Care Education/Training Program
DX: K85.90 Acute pancreatitis without necrosis or infection, unspecified (principal); K80.12 Calculus of gallbladder with acute and chronic cholecystitis without obstruction; I10 Essential (primary) hypertension; E87.6 Hypokalemia
CPT/HCPCS: 36415; 80053; 83690; 83735; 84100; 85025; 85610; 85730; 87081; A9270

== ENCOUNTER 2024-08-16 20:01 | Emergency (ER) | payer SELFPAY ==
[2024-08-16 21:26] VITALS: BP 151/98; PULSE 54; RESP 24; TEMP 36.4; O2SAT 96
--- NOTE | 2024-08-16 21:31 | PD.EDRME ---
Rapid Medical Screening Exam RME Arrival date/time: 08/16/24 20:01 48 yo m present to ED for c/o of abd pain hx pancreatitis I have greeted and performed a focused initial assessment of this patient. A comprehensive ED assessment and evaluation of the patient, analysis of all test results, and completion of the medical decision making process will be conducted by additional ED providers. Chief Complaint: Abdominal Pain Time Seen by Provider: 08/16/24 20:52 Vital signs: Vital Signs Temperature 97.6 F 08/16/24 21:26 Pulse Rate 54 L 08/16/24 21:26 Respiratory Rate 24 H 08/16/24 21:26 Blood Pressure 151/98 H 08/16/24 21:26 Pulse Oximetry (%) 96 08/16/24 21:26 Oxygen Delivery Method Room Air 08/16/24 21:26
[2024-08-16 22:20] LABS: Basophils # (Auto) 0.1 Thou/mm3 (0.0-0.2); Basophils % (Auto) 0 % (0-2.5); Eosinophils # (Auto) 0.1 Thou/mm3 (0.0-0.5); Eosinophils % (Auto) 0 % (0-10); Hematocrit 48.5 % (41.0-53.0); Hemoglobin 17.6 g/dL (13.5-16.0); Immature Granulocytes % (Auto) 1 % (0-0); Immature Granulocytes Auto 0.14 Thou/mm3 (0.00-0.00); Lymphocytes # (Auto) 1.7 Thou/mm3 (1.0-4.8); Lymphocytes % (Auto) 7 % (10-50); Mean Corpuscular HGB Conc 36.3 g/dl (31.0-37.0); Mean Corpuscular Hemoglobin 29.8 pg (25.0-35.0); Mean Corpuscular Volume 82 fL (80-100); Monocytes # (Auto) 1.3 Thou/mm3 (0.0-0.8); Monocytes % (Auto) 5 % (0-12); Neutrophils # (Auto) 23.1 Thou/mm3 (1.8-7.7); Neutrophils % (Auto) 87 % (37-80); Nucleated Red Blood Cell % 0 /100 WBC (0); Platelet Count 224 Thou/mm3 (140-440); RDW Standard Deviation 37.9 fL (35.1-43.9); Red Blood Count 5.91 Miln/mm3 (4.50-5.90)
[2024-08-16 22:26] LABS: White Blood Count 26.4 Thou/mm3 (3.8-10.6)
[2024-08-16 22:52] LABS: Alanine Aminotransferase 353 U/L (10-49); Albumin, Serum 4.7 gm/dL (3.5-5.0); Albumin/Globulin Ratio 1.5 (1.2-2.2); Alkaline Phosphatase 155 U/L (46-116); Amylase 1671 U/L (30-118); Anion Gap 9 (7-16); Aspartate Amino Transferase 222 U/L (0-34); BUN/Creatinine Ratio 14 Ratio (12-20); Bilirubin,Total 5.8 mg/dL (0.3-1.2); Blood Urea Nitrogen 14 mg/dL (9-23); Calcium 9.9 mg/dL (8.3-10.6); Calcium (Corrected) 9.9 mg/dL (8.5-10.1); Carbon Dioxide 26.6 mMol/L (20.0-31.0); Chloride 103 mMol/L (98-107); Globulin 3.1 gm/dL (2.3-3.5); Glucose 169 mg/dL (74-106); Lipase 2504 U/L (12-53); Osmolality,Calculated 282 (275-295); Potassium 3.3 mMol/L (3.4-5.1); Sodium 139 mMol/L (136-145); Total Protein 7.8 gm/dL (5.7-8.2); eGFR > 60 See Note
--- NOTE | 2024-08-16 23:27 | XR_ITS ---
Examination: Abdomen sonogram, Limited Date and time of exam: August 17, 2024 0032 hrs. Indications: Onset right upper abdominal pain beginning 4 days ago. Technique: Real-time lizama scale transabdominal sonographic images of the upper abdomen obtained. Findings: Gallstones Gallbladder wall 0.3 cm Common bile duct 0.4 cm Pancreas obscured by bowel gas Liver 15.6 cm fatty infiltration Normal hepatopedal portal venous flow Patent IVC Impression: Cholelithiasis Consider HIDA scan or MRCP follow-up to exclude cholecystitis
--- NOTE | 2024-08-16 23:27 | XR_ITS ---
Examination: CT chest with intravenous contrast CT abdomen with intravenous contrast CT pelvis with intravenous contrast 2-D coronal and sagittal reconstructions Time of exam: August 17, 2024 0125 hrs. Indications: Chest pain abdominal pain sepsis protocol today CTDI: vol (mGy) : 11.3 DLP: (mGycm): 908 5 0 Technique: Multiple axial images of the chest, abdomen and pelvis with intravenous contrast, 3.0 mm slice thickness. Images obtained post intravenous injection Isovue 370 60 cc. 2-D sagittal and coronal reconstructions. Low dose protocols were performed. One or more of the following dose reduction techniques were used; automated exposure control, adjustment of the mA and/or KV according to patient size, use of iterative reconstruction technique. Findings: No thoracic aortic aneurysmal dilatation No pulmonary artery filling defects No pneumonia or pulmonary edema or pleural disease Fatty infiltration throughout the liver Cholelithiasis Gallbladder wall is mildly thickened Significant acute pancreatitis, no pseudocyst Trace free fluid in the abdomen No hydronephrosis Aorta normal size Absent appendix No bowel obstruction Intact urinary bladder No significant prostatomegaly Impression: No pneumonia or pulmonary edema or pleural disease Cholelithiasis, findings suspicious for acute cholecystitis Acute pancreatitis Consider MRCP follow-up
--- NOTE | 2024-08-16 23:30 | EKG_ITS ---
[facility] Test Date: 2024-08-16 Pat Name: ARELY ANGELO Department: Room: - Gender: Male Home Visit Field Care Manager: : 1975 Requested By: Leilani Franklin Order Number: [id number] Reading MD: Leilani Franklin Measurements Intervals [place] Rate: 75 P: 4 SC: 169 QRS: -14 QRSD: 117 T: 66 QT: 428 QTc: 479 Interpretive Statements SINUS RHYTHM LATERAL MYOCARDIAL INFARCTION , PROBABLY RECENT [40+ ms Q WAVE AND/OR ST/T ABNORMALITY IN I/aVL/V5/V6] ACUTE OK Compared to ECG 04/23/2024 15:11:33 Myocardial infarct finding now present Left anterior fascicular block no longer present /store/S0/[id number]/ecg/[id number].pdf
--- NOTE | 2024-08-16 23:31 | PD.EDADDENDU ---
Emergency Room Addendum Addendum Narrative: Patient is still in the lobby. I reviewed the patient's results. Concerned for gallstone pancreatitis. Screens positive for sepsis. Bed requested at 2330. IVF was ordered by the PA and is pending to get them at this time. Antibiotics were ordered by me. Sepsis orders and Triglycerides ordered. If the triglycerides were positive, patient may need an insulin drip.
--- NOTE | 2024-08-16 23:33 | XR_ITS ---
Examination: AP chest single view Technique one AP portable upright chest single view Exam date and time: August 16, 2024 10:42 PM Comparison April 23, 2024 Indications: Sepsis protocol Findings: No significant cardiac enlargement Suspicious for early left base pneumonia Prominent osteopenia Impression: Suspicious for early left base pneumonia
[2024-08-16 23:51] VITALS: PULSE 77; PULSE 91; RESP 20; TEMP 36.4; O2SAT 100; BMI 32.5
--- NOTE | 2024-08-16 23:52 | PD.EDABDPN ---
ED Abdominal Pain RME/HPI General Chief Complaint: Abdominal Pain Stated complaint: ABDOMINAL PAIN, PANCREAS IS ACTING UP Time seen by provider: 08/16/24 20:52 Arrival date/time: 08/16/24 20:01 Limitations: no limitations RME / HPI RME / HPI narrative: 08/16/24 20:01 48 yo m present to ED for c/o of abd pain hx pancreatitis. I have greeted and performed a focused initial assessment of this patient. A comprehensive ED assessment and evaluation of the patient, analysis of all test results, and completion of the medical decision making process will be conducted by additional ED providers. Dr. Beckford's Main ED Evaluation: 48yo male with a history of pancreatitis presents to the ED for a chief complaint of RUQ pain. Patient states he started having significant RUQ pain 2-3 days ago after he ate pizza, but reports it resolved on its own. He states his pain returned after he ate crackers today and was more severe, so he came in for evaluation. He reports 2 nonbloody emetic episodes and sweating. He denies any fever, chills, diarrhea or any other associated symptoms. Patient states his pain is similar to when he had pancreatitis. No known allergies. Patient states he has not been able to take his amlodipine or lisinopril for the last 2 days secondary to vomiting. Patient states he was supposed to get an outpatient cholecystectomy done by Dr. German, but was pending insurance authorization. Patient is still in the lobby. I reviewed the patient's results. Concerned for gallstone pancreatitis. Screens positive for sepsis. Bed requested at 2330. IVF was ordered by the PA and is pending to get them at this time. Antibiotics were ordered by me. Sepsis orders and Triglycerides ordered. If the triglycerides were positive, patient may need an insulin drip. Initialized on 08/16/24 23:31 - END OF NOTE Related Data Previous Rx's ?Medication ?Instructions ?Recorded amlodipine 5 mg tablet 5 mg PO QDAY #30 tabs 04/30/24 Allergies Allergy/AdvReac Type Severity Reaction Status Date / Time No Known Allergies Allergy Verified 04/23/24 14:09 Review of Systems Review of Systems Systems Reviewed: All systems reviewed, normal except as documented Past Medical History Past Medical History CARDIAC: Positive Hypertension; Negative Cardiac Disorders or Congestive Heart Failure RESPIRATORY: Negative Chronic Obstructive Pulmonary Disease (COPD) or Asthma GASTROINTESTINAL: Positive Pancreatitis and Gall Bladder Disease GENITOURINARY: Negative Renal Disease ENDOCRINE: Negative Diabetes Mellitus Type 1 or Diabetes Mellitus Type 2 HEMATOLOGIC: Negative Sickle Cell Disease Family History OTHER FAMILY HX: Noncontributory Surgical History SURGICAL: Positive Abdominal Surgery (Appendectomy) Social History SMOKING STATUS: Never smoker SUBSTANCE USE: does not use ALCOHOL: Never Travel History EBOLA RISK: No ED Exam Narrative Physical exam: Patient appearing fatigued, clinically dehydrated, awake and not altered. General Limitations: Present no limitations General appearance: Present alert and in distress ( Acute pain with vomiting.) Head Head exam: Present atraumatic Eye Eye exam: Present PERRL, EOMI and other (eyes are sunken in) ENT ENT exam: Present normal oropharynx and mucous membranes dry Neck Neck exam: Present normal inspection, full ROM and trachea midline Chest Chest inspection: Present normal inspection and symmetric chest wall rise; Absent rash Respiratory Respiratory exam: Present normal lung sounds bilaterally Cardiovascular Cardiovascular exam: Present regular rate, normal rhythm, bradycardia and normal heart sounds Abdominal Exam Abdominal exam: Present soft, distention (mildly) and Alfaro's sign; Absent rebound Abdominal tenderness: Present diffuse Rectal Exam Rectal exam: Present deferred Extremities Exam Extremities exam: Present normal inspection and full ROM; Absent pedal edema Back Exam Back exam: Present normal inspection and full ROM Neurological Exam Neurological exam: Present alert, oriented X3 and CN II-XII intact Psychiatric Psychiatric exam: Present normal affect and normal mood Skin Skin exam: Present warm, dry, intact, pallor and other (decreased skin turgor); Absent mottled Course Course Course Narrative: 2129: blood pressure 156/98. 2317: Sepsis alert initiated. Orders made at this time are congruent with ED Adult Sepsis Order List. Re-evaluation is to be completed. CXR is ordered for determining the etiology of sepsis. 0009: NS IVF and antibiotics started. Spoke just working to spoken him Quality Measures Possible source: GI tract/intra-abdominal Blood cultures ordered: yes Antibiotic ordered: Yes Pertinent labs: 08/17/24 08/17/24 00:03 03:44 Lactic Acid 4.6 H* mMol/L 2.8 H mMol/L (0.4-2.0) (0.4-2.0) Procalcitonin 0.21 ng/ml (0.0-0.49) sepsis Orders Category Date Time Status Bedside COVID-19 Antigen Test NOW Care 08/17/24 00:54 Active COVID-19 Screening Questionnaire NOW Care 08/17/24 00:53 Active Donations Attendant STAT Care 08/16/24 23:30 Active Continuous Pulse Oximetry STAT Care 08/16/24 23:30 Completed EKG (ED ONLY) *Do not use* NOW Care 08/16/24 23:30 Completed Insert IV NOW Care 08/16/24 23:30 Active Insert IV STAT Care 08/16/24 21:34 Active NPO STAT Care 08/16/24 23:30 Active Strict Intake and Output Routine Care 08/16/24 23:[address] chest abdomen pelvis w con SEPSIS PROTOCOL Stat Exams 08/16/24 23:27 Taken EKG (ED Only) Stat Exams 08/16/24 23:30 Draft US gall bladder Stat Exams 08/16/24 23:27 Taken XR chest 1V SEPSIS PROTOCOL Stat Exams 08/16/24 23:33 Completed Amylase Stat Lab 08/16/24 21:44 Completed B-Type Natriuretic Peptide Stat Lab 08/16/24 23:30 Completed Blood Culture (Lab) Stat Lab 08/16/24 23:50 Received CBC Stat Lab 08/16/24 21:44 Completed CBC Stat Lab 08/16/24 23:30 Completed CMP [Comprehensive Metabolic Panel] Stat Lab 08/16/24 21:44 Completed Comprehensive Metabolic Panel Stat Lab 08/16/24 23:29 Completed Drug Screen,Urine Stat Lab 08/17/24 01:06 Completed LDH (Lactate Dehydrogenase) Stat Lab 08/16/24 23:29 Completed Lactate (Lactic Acid) Stat Lab 08/16/24 23:30 Completed Lactic Acid, 3 HR Stat Lab 08/17/24 03:44 Completed Lipase Stat Lab 08/16/24 21:44 Completed Magnesium Stat Lab 08/16/24 23:29 Completed Partial Thromboplastin Time Stat Lab 08/16/24 23:30 Completed Phosphorous Stat Lab 08/16/24 23:29 Completed Procalcitonin Stat Lab 08/17/24 00:03 Completed Prothrombin Time with INR Stat Lab 08/16/24 23:30 Completed Triglycerides Stat Lab 08/16/24 23:29 Completed Troponin I Stat Lab 08/16/24 23:29 Completed UA [Urinalysis] Stat Lab 08/16/24 21:34 Ordered Urinalysis Stat Lab 08/17/24 01:06 Completed Urine Culture Stat Lab 08/16/24 21:34 Ordered Urine Culture Stat Lab 08/17/24 01:06 Received HYDROmorphone INJ [Dilaudid Inj] Med 08/17/24 01:17 Discontinued 1 mg IVP X1 ONE HYDROmorphone INJ [Dilaudid Inj] Med 08/17/24 04:08 Discontinued 1 mg IVP X1 ONE Morphine Inj Med 08/16/24 21:34 Discontinued 4 mg IVP X1 ONE Ondansetron Inj [Zofran Inj] Med 08/16/24 23:30 Active 4 mg IV Q6HR PRN Ondansetron Inj [Zofran Inj] Med 08/16/24 21:34 Discontinued 4 mg IV X1 ONE POTASSIUM CHL 10 mEq IVPB [Kcl Ivpb] Med 08/17/24 03:21 Active 10 meq in 100 ml IV Q1H Piper/Tazo Inj [Zosyn Inj] 3.375 gm Med 08/16/24 23:30 Pending SODIUM CHLORIDE 0.9% (Popper) [Ns 0.9% (P)] 50 ml IV Q6HR Piper/Tazo Inj [Zosyn Inj] 3.375 gm Med 08/16/24 23:45 Discontinued SODIUM CHLORIDE 0.9% (Popper) [Ns 0.9% (P)] 50 ml IV X1 Sodium Chloride 0.9% 1000 ml [Ns] 1,000 ml Med 08/16/24 21:34 Discontinued IV 999 mls/hr cloNIDine HCL [Catapres] Med 08/17/24 04:57 Discontinued 0.1 mg PO X1 ONE fentaNYL INJ [Sublimaze Inj] Med 08/17/24 05:15 Discontinued 50 mcg IVP X1 ONE hydrALAZINE INJ [Apresoline Inj] Med 08/17/24 04:07 Discontinued 20 mg IV X1 ONE Oxygen Delivery NOW RT 08/16/24 23:30 Active Reevaluation(s) Reevaluation #1: Patient complaining of pain, morphine ordered. Time: 21:26 Reevaluation #2: Patient with improved pain but still present. 1 mg dose of Dilaudid IV was given at 0100 and repeated at 0400. Time: 01:00 Reevaluation #3: Repeat lactate is down to 2.8 from 4.6. Patient has urine output total for 500 cc dark urine. Time: 04:25 Vital Signs Vital signs: Vital Signs Temperature 97.6 F 08/16/24 21: Pulse Rate 54 L 08/16/24 21:26 Respiratory Rate 24 H 08/16/24 21:26 Blood Pressure 151/98 H 08/16/24 21:26 Pulse Oximetry (%) 96 08/16/24 21:26 Oxygen Delivery Method Room Air 08/16/24 21:26 Abdominal Pain MDM MDM Narrative MDM Narrative:: Patient is still in the lobby. I reviewed the patient's results. Concerned for gallstone pancreatitis. Screens positive for sepsis. Bed requested at 2330. IVF was ordered by the PA and is pending to get them at this time. Antibiotics were ordered by me. Sepsis orders and Triglycerides ordered. If the triglycerides were positive, patient may need an insulin drip. This is a 48-year-old male with a history of gallstone pancreatitis back in April 2024 with attempt to do his cholecystectomy as an outpatient that was not done presenting to the emergency department with nausea vomiting. Patient is septic, white count is 24,000 with dehydration, and initial lactate 4.6 that is improved after 2 L of fluid repeat lactate is 2.8 He is really killing me tonight 1-acute gallstone pancreatitis, elevated lipase and LFTs, ultrasound shows gallstone pancreatitis 2-acute dehydration/hypokalemia at potassium at 3.2. Potassium is replaced. 3-elevated liver function test. The patient states that he is not a heavy drinker in the past. 4 - history of hypertension and did not take his lisinopril or amlodipine for the last 48 hours. Likely the reason why his blood pressure is elevated. as she check for hCG. I spoke with Dr. Hill from [facility], who accepts the patient for ED-ED transfer. Patient data External records reviewed:: [facility] previous records (Per chart review, patient was seen here on 04/23/24 for cholecystitis.) Clinical information provided by:: patient Social determinants that could affect healthcare access:: none Patient has the following chronic illnesses:: HTN How is presenting disease/condition affected by chronic disease/condition?: uneffected by Evaluation data The following diagnostics were reviewed and interpreted by me:: lab results, radiology exam(s) and EKG tracing(s) Lab and/or radiology exams considered but not ordered:: none Interpretation Summary: WBC count is elevated at 26.4, Hemoglobin is elevated at 17.6, Potassium is 3.3, Glucose is 169, Total Bilirubin is elevated at 5.8, LFTs are elevated, Amylase is elevated at 1671, Lipase is elevated at 2504, Lactic Acid is elevated at 4.6, Procalcitonin is normal, Triglycerides are normal, according to my interpretation. EKG done at 2350, NSR, rate of 75, ST-T wave changes in V5, old Q wave in lead III, similar to previous EKG on 04/23/24, no STEMI, according to my interpretation. [facility] Preliminary Report Draft Patient: ARELY ANGELO [employer]. Record#: [id number] Birthdate: 1975 Age/Sex: 48 / M Location: [facility] Attending Dr: Ordering Physician: Date of Service: Procedure(s): Accession Number(s): cc: ~ Gallbladder ultrasound with doppler and wave doppler spectral analysis. August 17, 2024 0032 hours Clinical history: Gallstone pancreatitis Comparison: None. Findings: The study is limited by the patient body mass index and bowel gas. Heterogenous liver parenchyma. Distended gallbladder. Gallstones. No gallbladder wall thickening or pericholecystic fluid is identified. The common duct is normal in caliber at 3.5 mm. No free fluid is demonstrated on the submitted images. The portal vein is patent with bidirectional flow and normal wave Doppler spectral analysis. The inferior vena cava is patent. Impression: Limited study. Gallstones and distended gallbladder, acute cholecystitis cannot be excluded. Consider correlation with HIDA scan. Heterogenous liver parenchyma, consider further evaluation to exclude cirrhosis. Possible portal hypertension. Consider further evaluation. Report Electronically Signed By: Herberth Matt 08/17/2024 2:24:40 AM [facility] Preliminary Report Draft Patient: ARELY ANGELO [facility]. Record#: [id number] Birthdate: 1975 Age/Sex: 48 / M Location: [facility] Attending Dr: Ordering Physician: Date of Service: Procedure(s): Accession Number(s): cc: ~ CT scan of the chest, abdomen and pelvis with intravenous contrast (axial sections with sagittal and coronal reformats) August 17, 2024 at 0125 hours Clinical History: Abdominal pain, possible gallstone. Correlation: Ultrasound of August 17, 2024. Findings: The lungs are clear. There is no pleural effusion or pneumothorax. The aorta is unremarkable without evidence of dissection or aneurysm. No evidence of mediastinal mass or lymphadenopathy. There is no pericardial effusion. The liver, spleen and adrenals are unremarkable. Peripancreatic fat stranding. No collections. No pancreatic duct dilation. Gallstones. Gallbladder wall thickening. No biliary duct dilation. No evidence of bowel obstruction. S/p appendicectomy. Small bilateral renal simple cysts. No hydronephrosis. The urinary bladder is unremarkable. There is no free air. Small perihepatic ascites. Degenerative changes of the imaged portions of the spine. No acute fractures. Impression: 1. Acute pancreatitis. 2. Possible cholecystitis. 3. Small perihepatic ascites. Report Electronically Signed By: Herberth Matt 08/17/2024 2:52:09 AM [EST] Medications / Prescriptions Medications or Prescriptions considered but not ordered:: none Medication administrations:: Medication Administration History Piperacillin Sod/Tazobactam (Sod 3.375 gm/ Sodium Chloride) 50 mls @ 100 mls/hr IV Q6HR [facility] Stop: 08/23/24 23:29 Potassium Chloride (Kcl Ivpb) 10 meq in 100 mls @ 100 mls/hr IV Q1H [facility] Stop: 08/17/24 07:20 Last Admin: 08/17/24 04:36 Dose: 100 mls/hr Documented By: Infusion: 08/17/24 04:35 Dose: Infused Documented By: Admin: 08/17/24 03:33 Dose: 100 mls/hr Documented By: WO Ondansetron HCl (Ondansetron Inj 2 Mg/Ml Inj 2 Ml) 4 mg IV Q6HR PRN PRN Reason: NAUSEA OR VOMITING Stop: 09/15/24 23:29 Last Admin: 08/17/24 01:47 Dose: 4 mg Documented By: CVL Discontinued Medications Clonidine (Clonidine Hcl 0.1 Mg Tablet) 0.1 mg PO X1 ONE Stop: 08/17/24 04:58 Last Admin: 08/17/24 05:11 Dose: 0.1 mg Documented By: CVL Fentanyl Citrate (Fentanyl Cit Inj 50 Mcg/Ml Amp 2ml) 50 mcg IVP X1 ONE Stop: 08/17/24 05:16 Last Admin: 08/17/24 05:21 Dose: 50 mcg Documented By: CVL Hydralazine HCl (Hydralazine Inj 20 Mg/Ml Vial) 20 mg IV X1 ONE Stop: 08/17/24 04:08 Last Admin: 08/17/24 04:32 Dose: Not Given Documented By: CVL Non-Admin Reason: Allergy Hydromorphone HCl (Hydromorphone Inj 2 Mg/Ml Vial) 1 mg IVP X1 ONE Stop: 08/17/24 01:18 Last Admin: 08/17/24 01:49 Dose: 1 mg Documented By: CVL Hydromorphone HCl (Hydromorphone Inj 2 Mg/Ml Vial) 1 mg IVP X1 ONE Stop: 08/17/24 04:09 Last Admin: 08/17/24 04:14 Dose: 1 mg Documented By: CVL Sodium Chloride (Ns) 1,000 mls @ 999 mls/hr IV .Q1H1M ONE Stop: 08/16/24 22:34 Last Infusion: 08/17/24 01:16 Dose: Infused Documented By: Admin: 08/17/24 00:09 Dose: 999 mls/hr Documented By: CB Piperacillin Sod/Tazobactam (Sod 3.375 gm/ Sodium Chloride) 50 mls @ 100 mls/hr IV X1 ONE Stop: 08/17/24 00:14 Last Infusion: 08/17/24 00:43 Dose: Infused Documented By: Admin: 08/17/24 00:09 Dose: 100 mls/hr Documented By: MARIE Morphine Sulfate (Morphine Sulf Inj 10 Mg/Ml Vial) 4 mg IVP X1 ONE Stop: 08/16/24 21:35 Last Admin: 08/17/24 00:10 Dose: 4 mg Documented By: CB Ondansetron HCl (Ondansetron Inj 2 Mg/Ml Inj 2 Ml) 4 mg IV X1 ONE; Protocol Stop: 08/16/24 21:35 Last Admin: 08/17/24 00:10 Dose: 4 mg Documented By: CB see above Consultations Consultation(s) initiated? (list below): Yes Diagnosis Differential diagnosis abdominal pain: other (acute on chronic pancreatitis, cholangitis, CBD stone, sepsis, septic shock, necrotizing fasciitis) Most likely diagnosis given after review of the tests above:: see below Admission Indicated Admission indicated?: not indicated Explain why admission is indicated or not indicated:: Patient requires a higher [id number]. Admission Request Was there a request for admission?: No Disposition Plan Disposition Plan: Transfer Discharge Plan Plan Patient Disposition: [facility] Pt Being Transferred to: [facility] Service Needed for Transfer: Gastroenterology Disposition Comment: [facility]CP-[facility] Patient condition on transfer: Stable Prescriptions/Referrals Prescriptions/Med Rec: No Action amlodipine 5 mg tablet 5 mg PO QDAY Qty: 30 0RF Referrals: No Primary/Family,Physician [Primary Care Provider] - In 1 week Problem List Clinical Impression: Acute gallstone pancreatitis, Hypertensive urgency, History of hypertension, Acute hypokalemia, Acute dehydration, Sepsis Patient/Caregiver Discharge Instructions Print Language: Samoan Stand Alone Forms: Sirena Award Info., Patient Portal Info Letter
--- NOTE | 2024-08-16 23:52 | PC.NURSE ---
PT RECEIVED FROM PATTIE MCGRATH.
[2024-08-17] MEDS: SODIUM CHLORIDE 0.9% 1000 ML 1,000 ML 999 ML IV (00:09)
[2024-08-17] MEDS: PIPER/TAZO INJ 3.375 GM in SODIUM CHLORIDE 0.9% (Popper) 50 ML IV (00:09)
[2024-08-17] MEDS: ONDANSETRON INJ 2 MG/ML INJ 2 ML 4 MG IV ×2 (00:10→01:47)
[2024-08-17] MEDS: MORPHINE SULF INJ 10 MG/ML VIAL 4 MG IVP (00:10)
[2024-08-17 00:20] LABS: Lactate (Lactic Acid) 4.6 mMol/L (0.4-2.0)
[2024-08-17 00:31] LABS: INR 1.1 (0.9-1.3); Partial Thromboplastin Time 24.9 Seconds (22.0-36.0); Prothrombin Time 11.7 Seconds (9.0-12.2)
[2024-08-17 00:33] LABS: Basophils # (Auto) 0.1 Thou/mm3 (0.0-0.2); Basophils % (Auto) 0 % (0-2.5); Eosinophils % (Auto) 0 % (0-10); Hematocrit 49.6 % (41.0-53.0); Immature Granulocytes % (Auto) 1 % (0-0); Immature Granulocytes Auto 0.13 Thou/mm3 (0.00-0.00); Lymphocytes # (Auto) 1.1 Thou/mm3 (1.0-4.8); Lymphocytes % (Auto) 4 % (10-50); Mean Corpuscular HGB Conc 36.3 g/dl (31.0-37.0); Mean Corpuscular Hemoglobin 29.7 pg (25.0-35.0); Mean Corpuscular Volume 82 fL (80-100); Monocytes # (Auto) 1.1 Thou/mm3 (0.0-0.8); Monocytes % (Auto) 5 % (0-12); Neutrophils # (Auto) 22.3 Thou/mm3 (1.8-7.7); Neutrophils % (Auto) 91 % (37-80); Nucleated Red Blood Cell % 0 /100 WBC (0); Platelet Count 237 Thou/mm3 (140-440); RDW Standard Deviation 38.2 fL (35.1-43.9); Red Blood Count 6.06 Miln/mm3 (4.50-5.90)
[2024-08-17 00:36] LABS: White Blood Count 24.7 Thou/mm3 (3.8-10.6)
[2024-08-17 00:37] LABS: B-Type Natriuretic Peptide < 20 pg/mL (0-100)
[2024-08-17 00:41] LABS: Alanine Aminotransferase 379 U/L (10-49); Albumin/Globulin Ratio 1.6 (1.2-2.2); Alkaline Phosphatase 163 U/L (46-116); Anion Gap 14 (7-16); Aspartate Amino Transferase 240 U/L (0-34); BUN/Creatinine Ratio 17 Ratio (12-20); Bilirubin,Total 5.1 mg/dL (0.3-1.2); Blood Urea Nitrogen 15 mg/dL (9-23); Calcium 10.1 mg/dL (8.3-10.6); Calcium (Corrected) 10.1 mg/dL (8.5-10.1); Carbon Dioxide 22.9 mMol/L (20.0-31.0); Chloride 104 mMol/L (98-107); Creatinine (Component) 0.9 mg/dL (0.6-1.3); Estimated Creatinine Clearance 125.1 mL/min (>60); Globulin 3.2 gm/dL (2.3-3.5); Glucose 175 mg/dL (74-106); Magnesium 1.9 mg/dL (1.6-2.6); Osmolality,Calculated 286 (275-295); Phosphorous 2.7 mg/dL (2.4-5.1); Potassium 3.2 mMol/L (3.4-5.1); Sodium 141 mMol/L (136-145); Total Protein 8.2 gm/dL (5.7-8.2); Troponin I < 0.020 ng/mL (0.0-0.045); eGFR > 60 See Note
[2024-08-17 01:08] VITALS: BP 188/109; PULSE 80; RESP 20; TEMP 36.7; O2SAT 94
[2024-08-17 01:13] LABS: LDH (Lactate Dehydrogenase) 323 U/L (120-246); Procalcitonin 0.21 ng/ml (0.0-0.49); Triglycerides 138 mg/dL (30-150)
[2024-08-17 01:26] LABS: Collection Type, Urine Clean Catch; Squamous Epithelial Cell,Urine 0 /hpf (0-5)
[2024-08-17 01:35] LABS: Bacteria,Urine Rare; Bilirubin,Urine 2+ (Negative); Blood,Urine Negative (Negative); Clarity,Urine Turbid (Clear/Hazy); Color,Urine Drk-Yellow (Lt Yel-Yel); Glucose, Urine Trace (Negative); Hyaline Casts,Urine < 1 /hpf (0-1); Ketones,Urine 2+ (Negative); Leukocyte Esterase,Urine Negative (Negative); Nitrite,Urine Negative (Negative); PH,Urine 5.5 (5.0-7.0); Protein,Urine 1+ (Neg - Trace); RBC,Urine 4 /hpf (0-3); Specific Gravity,Urine 1.024 (1.001-1.035); WBC,Urine 5 /hpf (0-5)
[2024-08-17] MEDS: HYDROmorphone INJ 2 MG/ML VIAL 1 MG IVP ×2 (01:49→04:14)
[2024-08-17 02:22] LABS: Amphetamine/Methamp Scrn,U Negative (Negative); Barbiturate Screen,Urine Negative (Negative); Benzodiazepines Screen,Urine Negative (Negative); Benzoylecgonine Screen, Ur Negative (Negative); Fentanyl Screen,Urine Negative (Negative); Opiate Screen,Urine Positive (Negative); THC Screen,Urine Negative (Negative)
--- NOTE | 2024-08-17 02:25 | PRELIM_ITS ---
Gallbladder ultrasound with doppler and wave doppler spectral analysis. August 17, 2024 0032 hours Clinical history: Gallstone pancreatitis Comparison: None. Findings: The study is limited by the patient body mass index and bowel gas. Heterogenous liver parenchyma. Distended gallbladder. Gallstones. No gallbladder wall thickening or pericholecystic fluid is identified. The common duct is normal in caliber at 3.5 mm. No free fluid is demonstrated on the submitted images. The portal vein is patent with bidirectional flow and normal wave Doppler spectral analysis. The inferior vena cava is patent. Impression: Limited study. Gallstones and distended gallbladder, acute cholecystitis cannot be excluded. Consider correlation with HIDA scan. Heterogenous liver parenchyma, consider further evaluation to exclude cirrhosis. Possible portal hypertension. Consider further evaluation. Report Electronically Signed By: Herberth Matt 08/17/2024 2:24:40 AM [EST]
--- NOTE | 2024-08-17 02:52 | PRELIM_ITS ---
CT scan of the chest, abdomen and pelvis with intravenous contrast (axial sections with sagittal and coronal reformats) August 17, 2024 at 0125 hours Clinical History: Abdominal pain, possible gallstone. Correlation: Ultrasound of August 17, 2024. Findings: The lungs are clear. There is no pleural effusion or pneumothorax. The aorta is unremarkable without evidence of dissection or aneurysm. No evidence of mediastinal mass or lymphadenopathy. There is no pericardial effusion. The liver, spleen and adrenals are unremarkable. Peripancreatic fat stranding. No collections. No pancreatic duct dilation. Gallstones. Gallbladder wall thickening. No biliary duct dilation. No evidence of bowel obstruction. S/p appendicectomy. Small bilateral renal simple cysts. No hydronephrosis. The urinary bladder is unremarkable. There is no free air. Small perihepatic ascites. Degenerative changes of the imaged portions of the spine. No acute fractures. Impression: 1. Acute pancreatitis. 2. Possible cholecystitis. 3. Small perihepatic ascites. Report Electronically Signed By: Herberth Matt 08/17/2024 2:52:09 AM [EST]
[2024-08-17 03:10] LABS: Reflex Lactate? Y
[2024-08-17] MEDS: POTASSIUM CHL 10 mEq IVPB 10 MEQ/100 ML BAG 100 MEQ IV ×2 (03:33→04:36)
[2024-08-17 03:53] LABS: Lactic Acid, 3 HR 2.8 mMol/L (0.4-2.0)
[2024-08-17 04:08] VITALS: BP 172/111; PULSE 87; RESP 20; O2SAT 99
--- NOTE | 2024-08-17 04:14 | PC.NURSE ---
[facility] MD Hill would be receiving ER to ER Report to be called to [phone]
[2024-08-17 04:27] VITALS: BP 157/118; PULSE 94; RESP 18; O2SAT 93
[2024-08-17 05:11] VITALS: BP 173/115; PULSE 96
[2024-08-17] MEDS: cloNIDine HCL 0.1 MG TABLET PO (05:11)
[2024-08-17] MEDS: fentaNYL CIT INJ 50 mCg/ML AMP 2ML IVP (05:21)
[2024-08-17 05:26] VITALS: BP 174/110; PULSE 97; RESP 20; O2SAT 95
== END 2024-08-17 05:45 | disposition short-term general hospital (02) ==
PROVIDERS: Physician Assistant; Student in an Organized Health Care Education/Training Program; Emergency Provider Emergency Medicine
DX: A41.9 Sepsis, unspecified organism (principal); K85.10 Biliary acute pancreatitis without necrosis or infection; E86.0 Dehydration; K80.20 Calculus of gallbladder without cholecystitis without obstruction; I16.0 Hypertensive urgency; E87.6 Hypokalemia; R18.8 Other ascites; N28.1 Cyst of kidney, acquired; I10 Essential (primary) hypertension; Z90.49 Acquired absence of other specified parts of digestive tract
CPT/HCPCS: 36415; 71045; 71260; 74177; 76705; 80053; 80307; 81001; 82150; 83605; 83615; 83690; 83735; 83880; 84100; 84145; 84478; 84484; 85025; 85610; 85730; 87040; 87086; 87811; 93005; 96361; 96365; 96367; 96375; 96376; 99285; A4649; J2270; J2405; J2543; J3010; J3480; J3490; J7030; J7050; Q9967; A9270